=== PATIENT | female | born 1950 | race Caucasian/White ===

== ENCOUNTER 2024-04-16 08:45 | Inpatient (IN) ==
[2024-04-16] MEDS ORDERED: IOPAMIDOL 100 ML BOTTLE IV ONE (08:46)
[2024-04-16] MEDS: KETOROLAC 30 MG/ML VIAL IV ONE (10:06)
[2024-04-16] MEDS: 0.9 % SODIUM CHLORIDE 1,000 ML IV ONE ×2 (10:06→11:10)
[2024-04-16] MEDS: PIPERACILLIN SODIUM/TAZOBACTAM 3.375 GM in DEXTROSE 5% IN WATER 50 ML IV ONE (10:30)
[2024-04-16 10:38] LABS: ALT/SGPT 12 U/L (<40); AST/SGOT 17 U/L (<32); Albumin 3.7 gm/dL (3.2-5.2); Albumin/Globulin Ratio 1.2 (1.0-2.3); Alkaline Phosphatase 79 U/L (39-117); Blood Urea Nitrogen 29 mg/dL (8-23); Calcium 8.4 mg/dL (8.6-10.4); Carbon Dioxide 20 mmol/L (22-30); Chloride 101 mmol/L (96-108); Globulin 3.2 gm/dL (2.2-3.7); Glomerular Filtration Rate 37; Glucose 170 mg/dL (70-105); Potassium 3.6 mmol/L (3.3-5.1); Sodium 136 mmol/L (133-145)
[2024-04-16 10:39] LABS: Basophils # (Auto) 0.02 K/mcL (0.00-0.30); Basophils % (Auto) 0.1 % (0.0-2.0); Eosinophils # (Auto) 0 K/mcL (0.00-0.70); Eosinophils % (Auto) 0 % (0.0-7.0); Hematocrit 42.7 % (34.1-44.9); Hemoglobin 13.8 g/dL (11.2-15.7); Lymphocytes # (Auto) 0.44 K/mcL (1.50-4.80); Lymphocytes % (Auto) 1.8 % (15.5-49.0); Mean Cell Volume 93.8 fL (80.0-100.0); Mean Corpuscular HGB Conc 32.3 g/dL (31.0-36.0); Mean Platelet Volume 11.2 fL (8.8-12.5); Monocytes # (Auto) 1.08 K/mcL (0.10-0.90); Monocytes % (Auto) 4.5 % (1.0-12.0); Neutrophils % (Auto) 84.7 % (38.0-78.0); Platelet Count 193 K/mcL (140-440); RBC 4.55 M/mcL (3.59-5.38); Red Cell Distribution Width 16.5 % (11.5-14.5); WBC 23.9 K/mcL (4.5-11.0)
[2024-04-16 10:49] LABS: INR 1.5 (0.9-1.1); Prothrombin Time 18.5 sec (11.9-14.5)
[2024-04-16] MEDS: VANCOMYCIN 1,000 MG in 0.9 % SODIUM CHLORIDE 250 ML IV ONE (11:10)
[2024-04-16 11:46] LABS: Appearance,Urine Clear (Clear); Bacteria,Urine Many /hpf (0); Bilirubin,Urine Negative (Negative); Color,Urine Yellow; Culture Indicated,Urine Yes; Glucose,Urine (UA) Negative (Negative); Ketones,Urine 15 mg/dL (Negative); Leukocyte Esterase,Urine Negative /uL (Negative); Mucus,Urine Mod /hpf; Nitrate,Urine Negative (Negative); PH,Urine 5.5 (5.0-9.0); Protein,Urine >=300 mg/dL (Negative); Specific Gravity,Urine >= 1.030 (1.000-1.035); Urine Blood Negative ery/mcL (Negative); Urine Granular Cast 12 /lph (0-0); Urine Hyaline Cast 3 /lph (0-2); Urine RBC 1 /hpf (0-3); Urine Squamous Epithelial Cell 4 /hpf (0-4); Urine Transitional Epi Cells 0 /hpf (0-2); Urine WBC 0 /hpf (0-4); Urobilinogen,Urine Normal
[2024-04-16] MEDS ORDERED: VANCOMYCIN PER PHARMACY IV SCH (13:42)
[2024-04-16] MEDS ORDERED: POLYETHYLENE GLYCOL 3350 17 GM PACKET PO PRN (14:22)
[2024-04-16] MEDS ORDERED: ONDANSETRON 4 MG/2 ML VIAL IV PRN (14:22)
[2024-04-16] MEDS ORDERED: ACETAMINOPHEN 325 MG TABLET PO PRN (14:22)
[2024-04-16] MEDS ORDERED: SENNOSIDES 1 TABLET PO PRN (14:22)
[2024-04-16] MEDS ORDERED: MAG HYDROX/AL HYDROX/SIMETH 30 ML ORAL.SUSP PO PRN (14:22)
[2024-04-16] MEDS: LACTATED RINGERS 1,000 ML IV SCH (15:31)
[2024-04-16] MEDS: LEVOFLOXACIN 750 MG/150 ML BAG IV SCH (15:32)
[2024-04-16] MEDS: 0.9 % SODIUM CHLORIDE 10 ML SYRINGE IV SCH (15:32)
[2024-04-16] MEDS: HEPARIN 5,000 UNIT/ML VIAL SQ SCH (21:02)
[2024-04-16] MEDS: IPRATROPIUM/ALBUTEROL 3 ML AMPUL.NEB NEB PRN (21:14)
[2024-04-16] MEDS: MELATONIN 3 MG TABLET PO PRN (23:59)
[2024-04-17] MEDS: MELATONIN 3 MG TABLET PO ONE (00:01)
[2024-04-17] MEDS: LACTATED RINGERS 1,000 ML IV SCH ×2 (00:02→04:32)
[2024-04-17] MEDS: LACTATED RINGERS 500 ML IV ONE ×3 (00:06→04:27)
[2024-04-17] MEDS: LACTATED RINGERS 1,000 ML IV ONE (00:07)
[2024-04-17 06:38] LABS: Basophils # (Auto) 0.01 K/mcL (0.00-0.30); Basophils % (Auto) 0 % (0.0-2.0); Eosinophils # (Auto) 0.02 K/mcL (0.00-0.70); Eosinophils % (Auto) 0.1 % (0.0-7.0); Hematocrit 38.2 % (34.1-44.9); Hemoglobin 12.4 g/dL (11.2-15.7); Lymphocytes # (Auto) 0.95 K/mcL (1.50-4.80); Lymphocytes % (Auto) 4.4 % (15.5-49.0); Mean Cell Volume 94.1 fL (80.0-100.0); Mean Corpuscular HGB Conc 32.5 g/dL (31.0-36.0); Mean Platelet Volume 12.1 fL (8.8-12.5); Monocytes # (Auto) 0.59 K/mcL (0.10-0.90); Monocytes % (Auto) 2.8 % (1.0-12.0); Neutrophils % (Auto) 91.6 % (38.0-78.0); Platelet Count 190 K/mcL (140-440); RBC 4.06 M/mcL (3.59-5.38); Red Cell Distribution Width 16.3 % (11.5-14.5); WBC 21.4 K/mcL (4.5-11.0)
[2024-04-17 07:30] LABS: ALT/SGPT 10 U/L (<40); AST/SGOT 21 U/L (<32); Albumin 3.1 gm/dL (3.2-5.2); Albumin/Globulin Ratio 1.1 (1.0-2.3); Alkaline Phosphatase 72 U/L (39-117); Bilirubin,Direct 0.4 mg/dL (<0.3); Bilirubin,Total 0.7 mg/dL (0.1-1.0); Blood Urea Nitrogen 24 mg/dL (8-23); Calcium 8.1 mg/dL (8.6-10.4); Carbon Dioxide 21 mmol/L (22-30); Chloride 106 mmol/L (96-108); Globulin 2.8 gm/dL (2.2-3.7); Glomerular Filtration Rate 85; Glucose 100 mg/dL (70-105); Lactate Dehydrogenase 149 U/L (135-225); Potassium 3.4 mmol/L (3.3-5.1); Sodium 139 mmol/L (133-145); Triglycerides 105 mg/dL (<150); Uric Acid 3.2 mg/dL (2.5-8.0)
[2024-04-17] MEDS: LEVOFLOXACIN 750 MG/150 ML BAG IV SCH (09:31)
[2024-04-17] MEDS: FOLIC ACID 1 MG TABLET PO SCH (09:32)
[2024-04-17] MEDS ORDERED: VANCOMYCIN 1,000 MG in 0.9 % SODIUM CHLORIDE 250 ML IV SCH (10:00)
[2024-04-17] MEDS: DOXYCYCLINE 100 MG in DEXTROSE 5% IN WATER 100 ML IV SCH (11:08)
[2024-04-17] MEDS: POTASSIUM PHOSPHATE 40 MEQ in DEXTROSE 5% IN WATER 500 ML IV SCH (12:15)
[2024-04-18 06:29] LABS: Basophils # (Auto) 0.02 K/mcL (0.00-0.30); Basophils % (Auto) 0.1 % (0.0-2.0); Eosinophils % (Auto) 1.4 % (0.0-7.0); Hematocrit 38.1 % (34.1-44.9); Hemoglobin 12.3 g/dL (11.2-15.7); Lymphocytes # (Auto) 1.12 K/mcL (1.50-4.80); Lymphocytes % (Auto) 7.9 % (15.5-49.0); Mean Cell Volume 92.9 fL (80.0-100.0); Mean Corpuscular HGB Conc 32.3 g/dL (31.0-36.0); Mean Platelet Volume 11.4 fL (8.8-12.5); Monocytes # (Auto) 0.42 K/mcL (0.10-0.90); Neutrophils % (Auto) 86.5 % (38.0-78.0); Platelet Count 205 K/mcL (140-440); Red Cell Distribution Width 16.6 % (11.5-14.5); WBC 14.2 K/mcL (4.5-11.0)
[2024-04-18 07:32] LABS: ALT/SGPT 11 U/L (<40); AST/SGOT 21 U/L (<32); Alkaline Phosphatase 80 U/L (39-117); Bilirubin,Direct 0.3 mg/dL (<0.3); Bilirubin,Total 0.4 mg/dL (0.1-1.0); Blood Urea Nitrogen 13 mg/dL (8-23); Calcium 8.2 mg/dL (8.6-10.4); Carbon Dioxide 22 mmol/L (22-30); Chloride 108 mmol/L (96-108); Globulin 3.1 gm/dL (2.2-3.7); Glomerular Filtration Rate 95; Glucose 115 mg/dL (70-105); Lactate Dehydrogenase 129 U/L (135-225); Phosphorous 1.8 mg/dL (2.5-4.5); Potassium 3.5 mmol/L (3.3-5.1); Sodium 140 mmol/L (133-145); Triglycerides 142 mg/dL (<150); Uric Acid 2.6 mg/dL (2.5-8.0)
[2024-04-18] MEDS: NEUTRA PHOS 1 PACKET PO SCH (09:00)
[2024-04-18] MEDS: FUROSEMIDE 40 MG/4 ML VIAL IV SCH (09:59)
== END 2024-04-18 12:39 | disposition home or self-care (01) | DRG 871 ==
LOC: ED 08:45 → MEDSUR 14:12
PROVIDERS: ADMIT Student in an Organized Health Care Education/Training Program; ATTEND Internal Medicine